=== PATIENT | female | born 1950 | race Caucasian/White ===

== ENCOUNTER 2016-07-07 07:33 | Day surgery (SDC) | payer MEDICARE, OTHER ==
[2016-07-07] VITALS (22 sets, daily range): BP systolic 106–161; BP diastolic 47–88; PULSE 56–74; RESP 12–31; Ht 157.5 cm; Wt 67.0 kg
[~2016-07-07] VITALS: Ht 157.5 cm; Wt 67.0 kg
[~2016-07-07 07:33] MED LIST: ACET500C5 PO; CLIN-73 PO; CLON-379 PO; HYDR25TA6 PO; LORA0.5T PO; LOSA100T7 PO; METO-429 PO; METO50TA16 PO; OMEG10006 PO; OMEP20CA16 PO; SYN1 PO
[2016-07-07] MEDS ORDERED: POLYMYXIN/BACITRACIN 1L IRRIG IRR ONE (09:00)
[2016-07-07] MEDS ORDERED: CLINDAMYCIN 600 MG/D5W (PMX) 50 ML IVPB ONE (09:00)
[2016-07-07] MEDS ORDERED: LIDOCAINE 1%/EPI 30 ML INJ INJ ONE (09:00)
[2016-07-07] MEDS ORDERED: SOD CHLORIDE 0.9% 1,000 ML IV SCH (09:00)
[2016-07-07] MEDS ORDERED: CLON1PAT3 (09:31)
[2016-07-07] MEDS ORDERED: HEPARIN 1000 UNITS/ML 10 ML INJ ONE (09:41)
[2016-07-07] MEDS ORDERED: CEFAZOLIN 1 GM/50 ML (PMX) 50 ML IVPB ONE (09:41)
[2016-07-07] MEDS ORDERED: MIDAZOLAM 1 MG/ML 2 ML INJ ONE ×2 (09:41→11:05)
[2016-07-07] MEDS ORDERED: LIDOCAINE 1%/EPI (MDV) 20 ML INJ ONE (09:41)
[2016-07-07] MEDS ORDERED: SOD CHLORIDE 0.9% 1,000 ML ONE (09:42)
[2016-07-07] MEDS ORDERED: FENTAnyl 50 MCG/ML VIAL ONE (09:42)
--- NOTE | 2016-07-07 12:33 | RADRPT ---
PROCEDURE: FLUOROSCOPIC AND ULTRASONOGRAPHIC-GUIDED PLACEMENT OF LEFT CHEST PORT. CLINICAL INDICATION: History of right breast cancer. Venous access for chemotherapy. TECHNIQUE: INTRAPROCEDURE MEDICATIONS: PB antibiotic solution 40 cc applied topically. 600 mg clindamycin intra venously, intra-op. IV Versed and Fentanyl per protocol. TECHNIQUE: Informed consent was obtained. The procedure, risks, benefits, complications and alternat grant were explained to the patient. Risks including bleeding, infection, and pneumothorax were expl ained. The patient understood and was willing to proceed. A procedural pause was performed. The patient's name, date of , and procedure to be performed w ere verified. The central line was inserted with all elements of maximal sterile barrier technique. All of the fol lowing were used: head covering, facial mask, sterile gown, sterile gloves, a large sterile sheet, h and hygiene, and 2% chlorhexidine for cutaneous antisepsis. The left neck and anterior/superior chest wall were prepped and draped in usual sterile fashion. Limited sonography of the left neck was then performed. Noted is a patent left internal jugular vein . Following the local injection of 1% lidocaine, the left internal jugular vein was punctured under so nographic guidance with a 20-gauge needle through which a 0.018 inch floppy tip guidewire was advanc ed into the superior vena cava with fluoroscopic guidance. The tract was dilated to 5 [place] and t he wire was then replaced with a 0.035 in Glidewire. Serial dilatation was then performed and a 7 F rench peel away sheath was introduced. A site just inferior to the clavicle in the superior anterior left chest wall was localized. One per cent lidocaine was used as local anesthesia. A transverse 3 cm incision was made utilizing a 15 blad e scalpel. Utilizing blunt dissection a subcutaneous pocket was created inferior to the incision. Th e cavity was flushed with approximately 40 cc of PB antibiotic solution. The catheter was tunneled underneath the skin from the newly created pocket to the puncture site in the neck. The central line catheter was pulled through the tract. The catheter was then advanced thr ough the sheath until the tip was positioned in the right atrium. The peel-away sheath was removed. The catheter was flushed and clamped. The catheter was then connected to the 6.6 [place] [employer] power port. The port was then placed into the pocket. Prior to closing the instrument and sponge count was verified and was correct. The subcutaneous tissue was closed with 3-0 Vicryl interrupted suture. The skin at the site of the pock et and in the neck was closed with 4-0 Vicryl suture in a running subcuticular technique. The port w as flushed with 2000 units of heparin in 2 cc utilizing a Espinoza needle. The needle was removed. A dr essing was applied. The patient tolerated procedure well. COMPARISON: None. FINDINGS: Ultrasound images were recorded and stored in the patient's medical record. Final radiographic images demonstrate the tip of the catheter in the upper right atrium. A total of 0.2 minutes of fluoroscopy time was used. The ultrasound images demonstrate the needle entering th e jugular vein. IMPRESSION: 1. Successful ultrasonographic and fluoroscopic guided placement of left chest port. RPTAT: QQ .Derek Kerr MD, MD Date Time Electronically viewed and signed by .Derek Kerr MD, on 07/07/2016 12:33 .R/
--- NOTE | 2016-07-07 12:34 | RADRPT ---
PROCEDURE: Ultrasound guidance for placement of needle in left internal jugular vein. CLINICAL INDICATION: Venous access. TECHNIQUE: Prior to the procedure, informed consent was obtained. Risks including bleeding, infection, and pneu mothorax were explained to the patient. The patient understood and was willing to proceed. A procedu ral pause was performed. The patient's name, date of , and procedure to be performed were verif ied. The central line was inserted with all elements of maximal sterile barrier technique. All of th e following were used: head covering, facial mask, sterile gown, sterile gloves, a large sterile she et, hand hygiene, and 2% chlorhexidine for cutaneous antisepsis. The left neck and anterior/superi or chest wall was prepped and draped in usual sterile fashion. Limited sonography of the left neck was then performed. Noted is a patent left internal jugular vein . Ultrasound images were recorded and stored in the patient's medical record. Following the local injection of Xylocaine, the left internal jugular vein was punctured under sonog raphic guidance with a 20-gauge needle through which a 0.018 inch floppy tip guidewire was advanced into the superior vena cava. The patient tolerated the procedure well. The remainder of the proced ure was performed and dictated under separate cover. COMPARISON: None. FINDINGS: The ultrasound images demonstrate a patent left internal jugular vein. The subsequent images demons trate the needle entering the left internal jugular vein. IMPRESSION: 1. Ultrasound guidance for a needle placement in left internal jugular vein. RPTAT: QQ .Derek Kerr MD, Date Time Electronically viewed and signed by .Derek Kerr MD, on 07/07/2016 12:34 .R/
== END 2016-07-07 14:15 | disposition home or self-care (01) ==
LOC: SDS 07:33
PROVIDERS: ATTEND Internal Medicine Hematology & Oncology
DX: C50.911 Malignant neoplasm of unspecified site of right female breast (principal)
CPT/HCPCS: 36561; 76942; C1769; C1788; J0690; J1644; J2250; J3010; J7040

== ENCOUNTER → 2016-07-12 | Outpatient (CLI) | payer MEDICARE, OTHER ==
[~2016-07-12] MED LIST changes: -ACET500C5 PO; -CLIN-73 PO; -CLON-379 PO; +CLON1PAT3; -HYDR25TA6 PO; -LORA0.5T PO; -METO50TA16 PO; -OMEG10006 PO; -OMEP20CA16 PO
--- NOTE | 2016-07-12 15:37 | RADRPT ---
Echocardiogram Report Patient Name: MARTIN LAUGHLIN Gender: Female Date: 1950 Study Date: 12-Jul-2016 Access Director: Avni Keller RDCS Location: EKG Ref. Physician: CASANDRA BENJAMIN Quality: Good Procedures: Transthoracic echocardiogram with complete 2D, M-Mode, and doppler examination. Indications: breast cancer. 2D/M Mode Doppler Measurement Value Normal Ranges Measurement Value Normal Ranges LVIDd 2D 3.9 3.5 - 5.6 cm AV Peak Devin 1.3 m/sec LVIDs 2D 2.3 2.1 - 4.1 cm AV Peak PG 6.7 mmHg LVPWd 2D 0.8 0.6 - 1.1 cm AI Peak PG 10.7 mmHg IVSd 2D 0.9 0.6 - 1.1 cm AI Peak Devin 1.6 m/sec AoR Diam 2D 2.3 2.0 - 3.7 cm AI PHT 777.3 msec EDV 2D 66.8 cm3 LVOT Peak Devin 1.0 m/sec ESV 2D 12.5 cm3 LVOT Peak PG 4.3 mmHg LA Dimen 2D 3.6 2.3 - 4.0 cm MV E Peak Devin 0.7 m/sec MV A Peak Devin 1.1 m/sec MV E/A 0.6 MV Decel Time 290 msec MV Decel Edwards 2 MV E/A 0.6 Findings Left Ventricle: Normal left ventricular systolic function. Normal left ventricular cavity size. Normal left ventricular wall thickness. Ejection fraction is visually estimated at 65 %. Tissue Doppler/Mitral Doppler indices are consistent with impaired relaxation (Stage I diastolic dysfunction). Right Ventricle: Normal right ventricular size. Normal right ventricular systolic function. Left Atrium: The left atrium is normal in size. Right Atrium: The right atrium is normal in size. Mitral Valve: Normal appearance of the mitral valve. Mild mitral annular calcification. Trace mitral regurgitation. Aortic Valve: No hemodynamically significant aortic stenosis by doppler. Aortic cusps appear mildly calcified. Mild aortic valve regurgitation. Tricuspid Valve: Normal appearance of the tricuspid valve. Unable to obtain RVSP due to minimal presence of tricuspid regurgitation. Pulmonic Valve: Normal pulmonic valve appearance. Pericardium: Normal pericardium with no significant pericardial effusion. Aorta: Normal aortic root. IVC: Normal size and normal respiratory collapse consistent with normal right atrial pressure. Conclusions 1.Normal left ventricular systolic function. Normal left ventricular cavity size. Normal left ventricular wall thickness. Ejection fraction is visually estimated at 65 %. Tissue Doppler/Mitral Doppler indices are consistent with impaired relaxation (Stage I diastolic dysfunction). 2.Normal appearance of the mitral valve. Mild mitral annular calcification. Trace mitral regurgitation. 3.No hemodynamically significant aortic stenosis by doppler. Aortic cusps appear mildly calcified. Mild aortic valve regurgitation. 4.Normal appearance of the tricuspid valve. Unable to obtain RVSP due to minimal presence of tricuspid regurgitation. Electronically Signed By: Cristo Olmedo 12-Jul-2016 15:36:50 -0800 Patient Name: MARTIN LAUGHLIN Study Date: 12-Jul-2016 [id number]
== END | disposition home or self-care (01) ==
LOC: EKG 11:11
PROVIDERS: ATTEND Internal Medicine Hematology & Oncology
DX: C50.919 Malignant neoplasm of unspecified site of unspecified female breast (principal)
CPT/HCPCS: 93306

== ENCOUNTER → 2016-09-02 | Outpatient (CLI) | payer OTHER ==
[~2016-09-02] MED LIST changes: +ACETAMINOPHEN 650 MG PO ONE; +METHYLPREDNISOLONE 40 MG INJ IV SCH; +SOD CHLORIDE 0.9% 250 ML IV* ONE; +[UNRECOGNIZED DRUG - REMARK] IV ONE
[2016-09-05 09:03] VITALS: BP 156/80; PULSE 76; RESP 18
== END | disposition home or self-care (01) ==
LOC: LAB 12:24 → SDS 09-05 07:45 → LAB 09-05 07:45
PROVIDERS: ATTEND Internal Medicine Hematology & Oncology
DX: D64.81 Anemia due to antineoplastic chemotherapy (principal)
CPT/HCPCS: 36430; 86850; 86900; 86901; 86920; P9016

== ENCOUNTER 2016-10-12 03:16 | Emergency (ER) | payer OTHER ==
[~2016-10-12] VITALS: Ht 157.5 cm; Wt 62.0 kg
[~2016-10-12 03:16] MED LIST changes: -ACETAMINOPHEN 650 MG PO ONE; -METHYLPREDNISOLONE 40 MG INJ IV SCH; -SOD CHLORIDE 0.9% 250 ML IV* ONE; -[UNRECOGNIZED DRUG - REMARK] IV ONE
[2016-10-12 03:29] VITALS: Ht 157.5 cm; Wt 62.0 kg
--- NOTE | 2016-10-12 03:33 | ERA ---
ER Documentation Chief Complaint Date/Time DATE: 10/12/16 TIME: 03:31 Chief Complaint epigastric pain since 2200. On chemo since 06/2016 for breast ca HPI The patient is a 66-year-old female, presenting to the ER because of epigastric abdominal pain that began about 2200 hrs. she thought it was gas, she began to Tums, milk of magnesia with minimal response therefore she came to emergency department. She denies similar symptoms previously, denies fever, chills, neck pain, chest pain, vomiting, dysuria, diarrhea. She is on chemotherapy since June 2016 for right breast cancer, once every 3 weeks. She does not smoke, drinks socially Past medical history: Hypertension, hypothyroidism, history of right breast CA Past surgical history: Right knee replacement, left chest Port-A-Cath ROS All systems reviewed and are negative except as per history of present illness. Medications Home Meds Active Scripts Ondansetron (Ondansetron Odt) 4 Mg Tab.rapdis, 4 MG PO Q6H Y for NAUSEA AND/OR VOMITING, #10 TAB Prov:WILLIAM TERRY MD 10/12/16 Hydrocodone/Acetaminophen ([place] 10-325 Tablet) 1 Each Tablet, 1 TAB PO Q6H Y for PAIN, #15 TAB Prov:WILLIAM TERRY MD 10/12/16 Reported Medications Ergocalciferol (Vitamin D2) (VITAMIN D2) 2,000 Unit Tablet, 2000 UNIT PO, TAB 10/12/16 Vitamin B Complex (Vitamin B Complex) 1 Each Capsule, 1 EACH PO, CAP 10/12/16 Losartan Potassium* (Losartan Potassium*) 25 Mg Tablet, 12.5 MG PO DAILY, TAB 10/12/16 Clonidine Patch (CLONIDINE PATCH) 0.3 Mg/24 Hr Patch, 1 PATCH QWEEKLY, #4 07/07/16 Metoprolol Tartrate* (Lopressor*) 50 Mg Tablet, 50 MG PO BID, TAB 09/30/13 Levothyroxine Sodium (Levothroid) 100 Mcg Tablet, 88 MCG PO DAILY 09/30/13 Discontinued Reported Medications Cholecalciferol* (Vitamin D*) 400 Unit Tablet, 400 UNIT PO DAILY, TAB 10/12/16 Losartan Potassium* (Losartan Potassium*) 100 Mg Tablet, 100 MG PO DAILY 09/30/13 Allergies Allergies: Coded Allergies: Penicillins (Verified Allergy, Unknown, 07/07/16) codeine (Verified Adverse Reaction, Mild, GI upset/vomiting, 10/12/16) PMhx/Soc History of Surgery: No (RT KNEE REPLACEMENT) Anesthesia Reaction: No Hx Neurological Disorder: No Hx Respiratory Disorders: No Hx Cardiac Disorders: Yes (HTN) Hx Psychiatric Problems: No Hx Miscellaneous Medical Probl: Yes (RT BREAST CA) Hx Alcohol Use: Yes (SOCIAL) Hx Substance Use: No Hx Tobacco Use: No Physical Exam Vitals Vital Signs Date Time Temp Pulse Resp B/P Pulse Ox O2 Delivery O2 Flow Rate FiO2 10/12/16 04:32 79 18 124/64 97 Room Air 10/12/16 03:29 97.2 79 20 134/67 97 Physical Exam Const: No acute distress. Head: Atraumatic. Eyes: Normal Conjunctiva. ENT: Normal External Ears, Nose and Mouth. Neck: Full range of motion. No meningismus. Resp: Clear to auscultation bilaterally. Cardio: Regular rate and rhythm, no murmurs. Abd: Soft, non distended, normal bowel sounds, minimal epigastric tenderness, no right lower quadrant, right upper quadrant, rigidity, rebound, CVA tenderness Skin: No petechiae or rashes. Back: No midline or flank tenderness. Ext: No cyanosis, or edema. Neur: Awake and alert. No focal deficit Psych: Normal Mood and Affect. Result Diagram: 10/12/16 0352 10/12/16 0352 Results 24 hrs Laboratory Tests Test 10/12/16 03:52 10/12/16 04:51 White Blood Count 7.710^3/ul Red Blood Count 2.7610^6/ul Hemoglobin 9.0g/dl Hematocrit 26.7% Mean Corpuscular Volume 96.7fl Mean Corpuscular Hemoglobin 32.6pg Mean Corpuscular Hemoglobin Concent 33.7g/dl Red Cell Distribution Width 21.3% Platelet Count 07096^3/UL Mean Platelet Volume 8.4fl Neutrophils % 79.1% Lymphocytes % 11.3% Monocytes % 6.4% Eosinophils % 1.7% Basophils % 0.3% Nucleated Red Blood Cells % 0.0/100WBC Neutrophils # 6.110^3/ul Lymphocytes # 0.910^3/ul Monocytes # 0.510^3/ul Eosinophils # 0.110^3/ul Basophils # 0.010^3/ul Nucleated Red Blood Cells # 0.010^3/ul Sodium Level 143mmol/L Potassium Level 3.7mmol/L Chloride Level 113mmol/L Carbon Dioxide Level 25mmol/L Anion Gap 9 Blood Urea Nitrogen 12mg/dl Creatinine 0.73mg/dl Glucose Level 177mg/dl Calcium Level 9.4mg/dl Total Bilirubin 0.5mg/dl Direct Bilirubin 0.00mg/dl Indirect Bilirubin 0.5mg/dl Aspartate Amino Transf (AST/SGOT) 81IU/L Alanine Aminotransferase (ALT/SGPT) 50IU/L Alkaline Phosphatase 66IU/L Total Protein 7.0g/dl Albumin 4.6g/dl Globulin 2.40g/dl Albumin/Globulin Ratio 1.91 Lipase 79U/L Bedside Urine pH (LAB) 7.0 Bedside Urine Protein (LAB) Negative Bedside Urine Glucose (UA) Negative Bedside Urine Ketones (LAB) Negative Bedside Urine Blood Negative Bedside Urine Nitrite (LAB) Negative Bedside Urine Leukocyte Esterase (L Negative Current Medications Medications (Trade) Dose Ordered Sig/Dong Route PRN Reason Start Time Stop Time Status Last Admin Dose Admin Morphine Sulfate (morphine) 4 mg ONCE STAT IV 10/12/16 03:38 10/12/16 03:39 DC 10/12/16 03:55 Ondansetron HCl 4 mg 4 mg ONCE STAT IV 10/12/16 03:38 10/12/16 03:39 DC 10/12/16 03:54 Sodium Chloride (NS) 1,000 ml @ 1,000 mls/hr Q1H ONCE IV 10/12/16 04:00 10/12/16 04:59 DC 10/12/16 03:54 Hydromorphone HCl (Dilaudid) 1 mg ONCE STAT IV 10/12/16 04:34 10/12/16 04:35 DC 10/12/16 04:48 Procedures/[place] [id number] Radiology Main Line: [phone] DIAGNOSTIC IMAGING REPORT Patient: MARTIN LAUGHLIN : 1950 Age: 66 Sex: F MR #: [id number] DOS: 10/12/16 0338 Ordering MD: WILLIAM TERRY MD Location: E/R Room/Bed: PROCEDURE: ULTRASOUND LIMITED ABDOMEN CLINICAL INDICATION: 66-year-old female with abdominal pain. TECHNIQUE: Multiple sonographic of the right upper quadrant of the abdomen were obtained. The images were reviewed on a PACS workstation. COMPARISON: None. FINDINGS: The pancreas is partially visualized and is otherwise without abnormal echogenicity. The liver displays normal echogenicity. The liver measures 16.6 cm in length. No evidence of intrahepatic biliary ductal dilatation is seen. The portal and hepatic veins are unremarkable. The gallbladder contains multiple small shadowing stones. The gallbladder wall is mildly prominent measuring 3.2 mm. No pericholecystic fluid is seen. The common bile duct measures 4.7 mm and is not dilated. The right kidney displays normal echogenicity. The right kidney measures 10.4 cm in maximal length. No caliectasis or hydronephrosis is seen. No free fluid is seen. IMPRESSION: Cholelithiasis with mildly prominent gallbladder wall. .Nghia Santana MD MD Date Time Electronically viewed and signed by .Nghia Santana MD, MD on 10/12/2016 04:48 .M/ CC: WILLIAM TERRY MD MEDICAL MAKING DECISION: The patient is a 66-year-old female, presenting with acute biliary colic. She was treated with 1 L normal saline for clinical dehydration, morphine 4 mg IV and Dilaudid 1 mg IV for pain and Zofran 4 mg IV 1 for nausea with good response The differential diagnoses considered include but are not limited to cholelithiasis, cholecystitis, cystitis, pancreatitis, hepatitis, gastritis, peptic ulcer disease, gastric ulcer, appendicitis, diverticulitis, cholangitis, choledocholithiasis, partial small bowel obstruction. Departure Diagnosis: Primary Impression: Biliary colic Additional Impression: Anemia Condition: Good Comments She was discharged with [place] and Zofran I discussed the findings with the patient. I advised the patient to follow-up with the primary physician in about 1-2 days for referral to general surgeon for elective cholecystectomy, sooner if needed and return if any concern. WILLIAM TERRY MD October 12, 2016 03:32
[2016-10-12] MEDS ORDERED: ONDANSETRON 4 MG INJ IV STA (03:38)
[2016-10-12] MEDS ORDERED: morphine 4 MG/ML VIAL IV STA (03:38)
[2016-10-12] MEDS ORDERED: SOD CHLORIDE 0.9% 1,000 ML IV ONE (04:00)
[2016-10-12 04:02] LABS: ADD SCAN DIFF NO
[2016-10-12 04:03] LABS: BASOPHILS % 0.3 % (0.0-2.0); EOSINOPHILS # 0.1 10^3/ul (0.0-0.5); EOSINOPHILS % 1.7 % (0.0-7.0); HEMATOCRIT 26.7 % (37.0-47.0); LYMPHOCYTES # 0.9 10^3/ul (0.8-2.9); LYMPHOCYTES % 11.3 % (15.0-51.0); MEAN CORPUSCULAR HEMOGLOBIN 32.6 pg (29.0-33.0); MEAN CORPUSCULAR HGB CONC 33.7 g/dl (32.0-37.0); MEAN CORPUSCULAR VOLUME 96.7 fl (82.0-101.0); MEAN PLATELET VOLUME 8.4 fl (7.4-10.4); MONOCYTE # 0.5 10^3/ul (0.3-0.9); MONOCYTES % 6.4 % (0.0-11.0); NEUTROPHIL # 6.1 10^3/ul (1.6-7.5); NEUTROPHILS % 79.1 % (39.0-77.0); PLATELET COUNT 268 10^3/UL (140-415); RED BLOOD COUNT 2.76 10^6/ul (4.20-5.40); RED CELL DISTRIBUTION WIDTH 21.3 % (11.5-14.5); WHITE BLOOD COUNT 7.7 10^3/ul (4.8-10.8)
[2016-10-12] MEDS ORDERED: HYDROmorphONE 1 MG/ML SYG IV STA (04:34)
[2016-10-12 04:36] LABS: ALBUMIN 4.6 g/dl (3.3-4.9); POTASSIUM 3.7 mmol/L (3.5-5.1)
[2016-10-12 04:38] LABS: BILIRUBIN,INDIRECT 0.5 mg/dl (0-1.1); BILIRUBIN,TOTAL 0.5 mg/dl (0.2-1.3); CREATININE 0.73 mg/dl (0.44-1.00)
[2016-10-12 04:39] LABS: ALBUMIN/GLOBULIN RATIO 1.91; CALCIUM 9.4 mg/dl (8.4-10.2)
--- NOTE | 2016-10-12 04:48 | RADRPT ---
PROCEDURE: ULTRASOUND LIMITED ABDOMEN CLINICAL INDICATION: 66-year-old female with abdominal pain. TECHNIQUE: Multiple sonographic of the right upper quadrant of the abdomen were obtained. The imag es were reviewed on a PACS workstation. COMPARISON: None. FINDINGS: The pancreas is partially visualized and is otherwise without abnormal echogenicity. The liver displays normal echogenicity. The liver measures 16.6 cm in length. No evidence of intrah epatic biliary ductal dilatation is seen. The portal and hepatic veins are unremarkable. The gallbladder contains multiple small shadowing stones. The gallbladder wall is mildly prominent measuring 3.2 mm. No pericholecystic fluid is seen. The common bile duct measures 4.7 mm and is not dilated. The right kidney displays normal echogenicity. The right kidney measures 10.4 cm in maximal length. No caliectasis or hydronephrosis is seen. No free fluid is seen. IMPRESSION: Cholelithiasis with mildly prominent gallbladder wall. .Nghia Santana MD, Date Time Electronically viewed and signed by .Nghia Santana MD, MD on 10/12/2016 04:48 .M/
[2016-10-12 04:49] LABS: URINE BLOOD (Dip) POC Negative (NEGATIVE)
[2016-10-12] MEDS ORDERED: VITA1CAP PO (05:19)
[2016-10-12] MEDS ORDERED: LOSA25TA5 PO (05:19)
[2016-10-12] MEDS ORDERED: ERGO2000 PO (05:19)
[2016-10-12] MEDS ORDERED: CHOL400T10 PO (05:19)
[2016-10-12] MEDS ORDERED: ONDA4TAB14 PO (05:22)
[2016-10-12] MEDS ORDERED: HYDR-902 PO (05:22)
[2016-10-12 05:52] VITALS: BP 136/78; PULSE 81; RESP 18
== END 2016-10-12 05:52 | disposition home or self-care (01) ==
LOC: E/R 03:16
DX: K80.50 Calculus of bile duct without cholangitis or cholecystitis without obstruction (principal); D64.9 Anemia, unspecified; I10 Essential (primary) hypertension; E03.9 Hypothyroidism, unspecified; Z85.3 Personal history of malignant neoplasm of breast; Z96.651 Presence of right artificial knee joint
CPT/HCPCS: 76705; 80053; 81003; 83690; 85025; J1170; J2270; J2405; J7030; 36415; 96374; 96375

== ENCOUNTER → 2016-10-20 | Outpatient (CLI) | payer OTHER ==
[~2016-10-20] MED LIST changes: +ERGO2000 PO; +HYDR-902 PO; -LOSA100T7 PO; +LOSA25TA5 PO; +ONDA4TAB14 PO; +VITA1CAP PO
--- NOTE | 2016-10-21 08:40 | RADRPT ---
Echocardiogram Report Patient Name: MARTIN LAUGHLIN Gender: Female Date: 1950 Study Date: 20-Oct-2016 Regional Wildlife Agent: Abner [facility] Location: EKG Ref. Physician: CASANDRA BENJAMIN Quality: Adequate Procedures: Transthoracic echocardiogram with complete 2D, M-Mode, and doppler examination. Indications: Evaluate Left Ventricular function. Breast Cancer. 2D/M Mode Doppler Measurement Value Normal Ranges Measurement Value Normal Ranges LVIDd 2D 4.2 3.5 - 5.6 cm AV Peak Devin 1.4 m/sec LVIDs 2D 2.8 2.1 - 4.1 cm AV Peak PG 7.5 mmHg LVPWd 2D 1.2 0.6 - 1.1 cm LVOT Peak Devin 1.3 m/sec IVSd 2D 1.2 0.6 - 1.1 cm LVOT Peak PG 6.3 mmHg AoR Diam 2D 2.9 2.0 - 3.7 cm MV E Peak Devin 0.7 m/sec EDV 2D 77.3 cm3 MV A Peak Devin 1.0 m/sec ESV 2D 21.7 cm3 MV E/A 0.7 LA Dimen 2D 3.7 2.3 - 4.0 cm MV Decel Time 211 msec MV Decel Whitley 3 MV E/A 0.7 Findings Left Ventricle: Normal left ventricular systolic function. Normal left ventricular cavity size. Mild concentric left ventricular hypertrophy. Ejection fraction is visually estimated at 65 %. Tissue Doppler/Mitral Doppler indices are consistent with impaired relaxation (Stage I diastolic dysfunction). E/E`=11. normal e/e` atio c/w normal LA pressure. Right Ventricle: Normal right ventricular size. Normal right ventricular systolic function. Left Atrium: The left atrium is normal in size. Right Atrium: The right atrium is normal in size. Mitral Valve: Mild mitral leaflet calcification. Trace mitral regurgitation. Aortic Valve: Normal appearance of the aortic valve. No significant aortic stenosis or insufficiency. Trileaflet aortic valve. Trace to mild aortic valve regurgitation. Tricuspid Valve: Normal appearance and function of the tricuspid valve with trace physiologic regurgitation. Estimated peak PA systolic pressure 2530 mmHg. c/w normal pulmonary pressures. Pulmonic Valve: There is trace to mild pulmonic regurgitation. Pericardium: Normal pericardium with no significant pericardial effusion. Aorta: Normal aortic root. IVC: Normal size and normal respiratory collapse consistent with normal right atrial pressure. c/w normal RA pressure. Conclusions 1.Normal left ventricular systolic function. Normal left ventricular cavity size. Mild concentric left ventricular hypertrophy. Ejection fraction is visually estimated at 65 %. Tissue Doppler/Mitral Doppler indices are consistent with impaired relaxation (Stage I diastolic dysfunction). E/E`=11. normal e/e` atio c/w normal LA pressure. 2.The left atrium is normal in size. 3.Mild mitral leaflet calcification. Trace mitral regurgitation. 4.Normal appearance of the aortic valve. No significant aortic stenosis or insufficiency. Trileaflet aortic valve. Trace to mild aortic valve regurgitation. 5.Normal appearance and function of the tricuspid valve with trace physiologic regurgitation. Estimated peak PA systolic pressure 25-30 mmHg. c/w normal pulmonary pressures. 6.There is trace to mild pulmonic regurgitation. 7.Normal pericardium with no significant pericardial effusion. 8.Normal size and normal respiratory collapse consistent with normal right atrial pressure. c/w normal RA pressure. 9.No Vegetation, masses, or thrombi seen. Electronically Signed By: Reginald Yoo 21-Oct-2016 08:39:41 -0700 Patient Name: MARTIN LAUGHLIN Study Date: 20-Oct-2016 [id number]
== END | disposition home or self-care (01) ==
LOC: EKG 10:05
PROVIDERS: ATTEND Internal Medicine Hematology & Oncology
DX: C50.919 Malignant neoplasm of unspecified site of unspecified female breast (principal)
CPT/HCPCS: 93306

== ENCOUNTER 2017-01-09 07:11 | Observation (INO) | payer OTHER ==
[2017-01-06 10:27] VITALS: BMI 24.2
[~2017-01-09] VITALS: Ht 157.5 cm; Wt 59.9 kg
[2017-01-09] VITALS (16 sets, daily range): BP systolic 124–186; BP diastolic 71–91; PULSE 56–107; RESP 12–18; Ht 157.5 cm; Wt 59.9 kg
[2017-01-09] MEDS ORDERED: VANCOMYCIN 1 GM in NS 250 ML IVPB ONE (08:30)
[2017-01-09] MEDS ORDERED: NIFE30TA60 PO (08:44)
[2017-01-09] MEDS ORDERED: METHYLENE BLUE 1% 10 ML INJ ONE (09:47)
[2017-01-09] MEDS ORDERED: ISOSULFAN BLUE 1% 5 ML INJ SC ONE ×2 (10:04→15:00)
[2017-01-09] MEDS ORDERED: DIPHENHYDRAMINE 50 MG INJ ONE (14:27)
[2017-01-09] MEDS ORDERED: LABETALOL HCL 20MG INJ IV PRN (14:30)
[2017-01-09] MEDS ORDERED: DIPHENHYDRAMINE 50 MG INJ IV ONE (14:30)
[2017-01-09] MEDS ORDERED: ONDANSETRON 4 MG INJ IV PRN ×2 (14:30→17:00)
[2017-01-09] MEDS ORDERED: MEPERIDINE 25 MG INJ IV PRN (14:30)
[2017-01-09] MEDS ORDERED: hydrALAzine 20 MG INJ IV PRN ×2 (14:30→18:30)
[2017-01-09] MEDS ORDERED: DIPHENHYDRAMINE 50 MG INJ IV PRN (14:30)
[2017-01-09] MEDS ORDERED: HYDROmorphONE (0.2 MG/ML) 10ML SYG IV PRN ×3 (14:30)
[2017-01-09] MEDS ORDERED: MIDAZOLAM 1 MG/ML 2 ML INJ IV PRN (14:30)
[2017-01-09] MEDS ORDERED: FENTAnyl 50 MCG/ML VIAL IV PRN ×3 (14:30)
[2017-01-09] MEDS ORDERED: EPHEDrine SULFATE 50 MG/5 ML SYG IV PRN (14:30)
[2017-01-09] MEDS ORDERED: OXYCODONE/ACETAMINOPHEN (5/325) TAB PO PRN ×2 (14:30)
[2017-01-09] MEDS ORDERED: METOCLOPRAMIDE 10 MG INJ IV PRN (14:30)
[2017-01-09] MEDS ORDERED: MIDAZOLAM 1 MG/ML 2 ML INJ ONE (14:35)
[2017-01-09] MEDS ORDERED: LIDOCAINE 2% (SDV) 5 ML INJ ONE (14:44)
[2017-01-09] MEDS ORDERED: PROPOFOL 20 ML ONE (14:44)
[2017-01-09] MEDS ORDERED: MEPERIDINE 100 MG INJ ONE (14:44)
[2017-01-09] MEDS ORDERED: ATROPINE 1 MG/10 ML SYRINGE ONE (15:10)
[2017-01-09] MEDS ORDERED: METOCLOPRAMIDE 10 MG INJ ONE (16:13)
[2017-01-09] MEDS ORDERED: ONDANSETRON 4 MG INJ ONE (16:13)
[2017-01-09] MEDS ORDERED: EPHEDrine SULFATE 50 MG/5 ML SYG ONE (16:13)
[2017-01-09] MEDS ORDERED: D5W-0.45 NACL + KCL 20 MEQ 1,000 ML IV SCH (16:34)
--- NOTE | 2017-01-09 16:34 | SIPON ---
Date/Time of Note Date/Time of Note DATE: 01/09/17 TIME: 16:32 Operative Report Preoperative Diagnosis Base of cancer right breast Postoperative Diagnosis Same Operation/Procedure Performed Needle directed right partial mastectomy and dissection was explained the technique Surgeon: BEN SNIDER MD investment sales assistant: TATYANA SIEGEL MD Anesthesia Type: general Estimated Blood Loss: 10 - 50 ml's Transfusion Required: no Specimens Right partial mastectomy specimen and and sentinel lymph node with additional axillary nodes Grafts/Implants: none Complications: no BEN SNIDER MD Jan 09, 2017 16:34
[2017-01-09] MEDS ORDERED: morphine 2 MG INJ IV PRN (17:00)
[2017-01-09] MEDS ORDERED: ACETAMINOPHEN 1000MG/100ML IV 100 ML IVPB PRN (17:00)
[2017-01-09] MEDS ORDERED: CLONIDINE 0.3 MG/24 HR PATCH TRANSDERM SCH ×2 (19:00)
[2017-01-09] MEDS: SOD CHLORIDE 0.9% 1,000 ML IV SCH ×2 (20:00→21:50)
[2017-01-09] MEDS: METOPROLOL 50 MG TAB PO SCH (20:22)
[2017-01-09] MEDS ORDERED: NIFEdipine (XL) 30 MG TAB PO SCH (21:00)
[2017-01-10] MEDS ORDERED: ACETAMINOPHEN 325 MG TAB PO PRN
--- NOTE | 2017-01-10 02:11 | OPR ---
DATE OF OPERATION: 01/09/2017 SURGEON: Rk Carl MD CUSTOMER RELATIONS REPRESENTATIVE: Roberto Navas MD ANESTHESIOLOGIST: Kin Veras MD PREOPERATIVE DIAGNOSIS: Invasive cancer, right breast. POSTOPERATIVE DIAGNOSIS: Invasive cancer, right breast. OPERATIVE PROCEDURE: Needle-directed right partial mastectomy with axillary dissection utilizing sentinel lymph node technique. ANESTHESIA: General. INDICATIONS FOR PROCEDURE: The patient is a 66-year-old female who underwent screening mammography, found to have an approximately 2-1/2 cm invasive cancer of the right breast. It was HER2 positive, thus the patient was counseled as to the benefits of neoadjuvant chemotherapy. She proceed with neoadjuvant chemotherapy, she subsequently was referred for surgery. A post chemotherapy mammogram revealed relatively good response. The patient was counseled as to the possibility of breast conservation surgery. She elected to proceed in that fashion. She consented and was scheduled for surgery. DESCRIPTION OF PROCEDURE: On the morning of surgery, the patient presented to [facility] where she underwent localization of the lesion, performed by attending radiologist, Dr. Claudio Barnhart. Subsequently, she was brought to the operating theater and placed under general anesthesia. If I did not already dictated. After being placed under general anesthesia, the right breast and axillary region was prepped and draped in the usual sterile fashion. Approximately 4 mL of 1 percent Lymphazurin blue dye was then injected peritumorally and the right breast was gently massaged for approximately 12 minutes. At this point, an incision was made in the right axillary hairline for a length of approximately 3-4 cm. Subcutaneous tissue was dissected with cautery down through the clavipectoral fascia. A dye-stained lymphatic was identified and traced to the sentinel node. [place] nodes were slightly enlarged. It was this node and additional level 1 nodes in the area were then meticulously resected with the LigaSure device. The sentinel node was marked. The attending pathologist, Dr. Pam Gamble, came into the room to perform intraoperative analysis of the sentinel node. It was negative for definite evidence of metastatic disease; therefore, no further nodes were taken. The wound was then irrigated. A number 10-Maltese Manish- Pickard drain was then brought through the right mid axillary line. It was cut to size and laid within the axilla. It was secured in place with a 2-0 nylon suture in the standard fashion. The skin incision was then reapproximated with 4-0 Vicryl in subcuticular fashion and Dermabond was applied. Attention was then directed towards performing the partial mastectomy. The localization had taken place with the 2-wire bracketing technique. A radial incision was then made in the region of the previously placed localization wire. Subcutaneous tissue was dissected with cautery. The skin edges were then elevated with skin hooks and wide circumferential dissection of the tissue associated with the wire took place, taking great care to ensure adequate margin. Specimen was transected, oriented, and sent for radiographic confirmation of capture. Capture was confirmed. The specimen was then sent for permanent pathologic analysis. The wound was irrigated. Minimal bleeding was controlled with cautery. The skin was then reapproximated with 4- 0 Vicryl suture in subcuticular fashion and Dermabond was applied. The patient tolerated procedure well. The estimated blood loss was 30 mL. There were no complications. The patient was transported in stable condition to the recovery room where a circumferential compression dressing was applied. Dictated By: Rk Carl MD /betty/mita /Document#: [id number]
--- NOTE | 2017-01-10 02:59 | HP ---
DATE OF ADMISSION: 01/09/2017 HISTORY OF PRESENT ILLNESS: The patient is a 66-year-old female with history of hypertension and hypothyroidism. The patient also with cancer of the right breast. Patient was evaluated by Dr. Carl in general surgery consultation. Patient was brought to the hospital and underwent right partial mastectomy with sentinel lymph node dissection. Postoperatively, patient noted to have elevated blood pressure and was giving hydralazine 5 mg IV in the recovery room with some improvement in blood pressure. Patient also complains of moderate pain and patient will be admitted for further evaluation and management to medical surgical floor. PAST MEDICAL HISTORY: Positive for cancer of the right breast, hypertension and hypothyroidism. PAST SURGICAL HISTORY: Patient is status post a right total knee replacement, PermCath placement. FAMILY HISTORY: Noncontributory. SOCIAL HISTORY: Patient lives at home with her family. Patient denies tobacco use. Denies alcohol use. Denies illicit drug use. ALLERGIES: PATIENT IS ALLERGIC TO: PENICILLIN ANTIBIOTICS. CODEINE. MEDICATIONS: Includes: 1. Clonidine patch. 2. Levothyroxine. 3. Cozaar. 4. Metoprolol. 5. Nifedipine. REVIEW OF SYSTEMS: Twelve point review of system is negative unless what is mentioned in HPI. PHYSICAL EXAMINATION: GENERAL: Patient is a well-developed female, currently is awake, alert. VITAL SIGNS: Temperature is 98.5, pulse is 107, blood pressure 167/77, respiratory rate 18, oxygen saturation 100 percent on room air. HEENT: Head is atraumatic, normocephalic. Pupils equal, round, reactive to light and accommodation. Oral mucosa is pink and moist. NECK: Supple. No cervical lymphadenopathy. No thyromegaly. CHEST: Status post surgery with a dry, clean, intact dressing and 2 axillary Manish-Pickard. LUNGS: Clear bilaterally. CARDIOVASCULAR: Normal S1, S2. No murmurs, gallops, clicks, rubs noted. ABDOMEN: Round, soft, nondistended, nontender. Bowel sounds present. EXTREMITIES: No edema, clubbing, cyanosis. Pulses equal bilaterally 2+. SKIN: No rash. No petechiae noted. NEUROLOGICAL: Patient is awake, alert, and oriented x4. No focal deficits noted. ASSESSMENT AND PLAN: 1. Invasive cancer of the right breast, status post partial mastectomy, with sentinel lymph node dissection. We will continue Tylenol and morphine p.r.n. for pain, Zofran p.r.n. for nausea. 2. Hypertension. We will continue patient's antihypertensive medication from home. 3. Hypothyroidism. Continue Synthroid. 4. Continue sequential compression device for deep venous thrombosis prophylaxis. Further recommendations based on clinical course. Plan of care discussed with Dr. Martinez. Dictated By: Wanda Adkins NP /betty/jose luis /Document#: [id number]
[2017-01-10 03:24] VITALS: BP 130/60; RESP 18
[2017-01-10 05:00] VITALS: BP 135/63; PULSE 64; RESP 18
[2017-01-10] MEDS ORDERED: LEVOTHYROXINE 88 MCG TAB PO SCH (06:00)
[2017-01-10 06:20] LABS: BASOPHILS % 0.4 % (0.0-2.0); EOSINOPHILS # 0.2 10^3/ul (0.0-0.5); EOSINOPHILS % 2.9 % (0.0-7.0); HEMATOCRIT 32.3 % (37.0-47.0); HEMOGLOBIN 11.1 g/dl (12.0-16.0); LYMPHOCYTES # 1.6 10^3/ul (0.8-2.9); LYMPHOCYTES % 19.7 % (15.0-51.0); MEAN CORPUSCULAR HEMOGLOBIN 32.7 pg (29.0-33.0); MEAN CORPUSCULAR HGB CONC 34.4 g/dl (32.0-37.0); MEAN CORPUSCULAR VOLUME 95.3 fl (82.0-101.0); MONOCYTE # 0.8 10^3/ul (0.3-0.9); MONOCYTES % 10.4 % (0.0-11.0); NEUTROPHILS % 66.1 % (39.0-77.0); PLATELET COUNT 178 10^3/UL (140-415); RED BLOOD COUNT 3.39 10^6/ul (4.20-5.40); RED CELL DISTRIBUTION WIDTH 13.1 % (11.5-14.5); WHITE BLOOD COUNT 7.9 10^3/ul (4.8-10.8)
[2017-01-10 06:59] LABS: CALCIUM 9.2 mg/dl (8.4-10.2); CREATININE 0.87 mg/dl (0.44-1.00); POTASSIUM 4.2 mmol/L (3.5-5.1)
[2017-01-10 07:34] VITALS: BP 148/64; RESP 19
[2017-01-10] MEDS: METOPROLOL 50 MG TAB PO SCH (08:45)
[2017-01-10 08:51] VITALS: BP 172/76; PULSE 65
[2017-01-10] MEDS ORDERED: NIFEdipine (XL) 30 MG TAB PO SCH (09:00)
[2017-01-10] MEDS ORDERED: CLONIDINE 0.3 MG/24 HR PATCH TRANSDERM SCH (09:00)
[2017-01-10] MEDS ORDERED: LOSARTAN 25 MG TAB PO SCH (09:00)
--- NOTE | 2017-01-10 13:20 | PN ---
Date/Time of Note Date/Time of Note DATE: 01/10/17 TIME: 13:15 Assessment/Plan VTE Prophylaxis VTE Prophylaxis Intervention: ambulation Lines/Catheters IV Catheter Type (from [facility]): Saline Lock Assessment/Plan Assessment/Plan Postop day #1. Status post right breast partial mastectomy with axillary dissection. There is a stable Manish-Pickard drains draining serosanguineous fluid both of them totally 70 cc since operation. She was instructed how to take care of Manish-Pickard drain how to drain them and how to record the drainage amount. Patient can be discharged home today to call Dr. Dickson office and make an appointment for follow-up. Subjective 24 Hr Interval Summary Free Text/Dictation No complain. Postop day #1 status post right partial mastectomy with axillary dissection sentinel lymph node technique. As tolerated diet has been out of bed walking around. Exam/Review of Systems Vital Signs Vitals Vital Signs Date Time Temp Pulse Resp B/P Pulse Ox O2 Delivery O2 Flow Rate FiO2 01/10/17 08:51 65 172/76 01/10/17 07:34 98.3 19 97 01/10/17 05:00 Room Air Intake and Output 01/09/17 01/09/17 01/10/17 15:00 23:00 07:00 Intake Total 1480 ml Output Total 53 ml 40 ml Balance -53 ml 1440 ml Exam Postop day #1. Vital signs stable afebrile. Manish-Pickard sump drain respectively 20 cc and 50 cc since operation to serosanguineous fluid. Dressing is intact patient can move right upper extremity completely. Results Result Diagram: 01/10/17 0543 01/10/17 0543 Results 24 hrs Laboratory Tests Test 01/09/17 14:40 01/10/17 05:43 Hepatitis B Surface Antigen NEGATIVE Hepatitis B Surface Antibody NEGATIVE Hepatitis C Antibody NEGATIVE HIV (1&2) Antibody NEGATIVE White Blood Count 7.9 Red Blood Count 3.39 #L Hemoglobin 11.1 #L Hematocrit 32.3 #L Mean Corpuscular Volume 95.3 Mean Corpuscular Hemoglobin 32.7 Mean Corpuscular Hemoglobin Concent 34.4 Red Cell Distribution Width 13.1 # Platelet Count 178 # Mean Platelet Volume 9.0 Neutrophils % 66.1 Lymphocytes % 19.7 Monocytes % 10.4 Eosinophils % 2.9 Basophils % 0.4 Nucleated Red Blood Cells % 0.0 Neutrophils # (Manual) 5.2 Lymphocytes # 1.6 Monocytes # 0.8 Eosinophils # 0.2 Basophils # 0.0 Nucleated Red Blood Cells # 0.0 Sodium Level 143 Potassium Level 4.2 Chloride Level 104 Carbon Dioxide Level 25 Anion Gap 18 H Blood Urea Nitrogen 14 Creatinine 0.87 Glucose Level 102 Calcium Level 9.2 Medications Medications Current Medications Levothyroxine Sodium (Synthroid) 88 mcg DAILY@06 PO Last administered on 06:11; Admin Dose 88 MCG; Start 01/10/17 at 06:00 Losartan Potassium (Cozaar) 12.5 mg DAILY PO Last administered on 01/10/17 08: 45; Admin Dose 12.5 MG; Start 01/10/17 at 09:00 Metoprolol Tartrate (Lopressor) 50 mg BID PO Last administered on 01/10/17 08: 45; Admin Dose 50 MG; Start 01/09/17 at 21:00 Hydralazine HCl (Apresoline) 10 mg Q6H PRN IV SBP>170; Start 01/09/17 at 18:30 Nifedipine (Procardia Xl) 30 mg QHS PO Last administered on 01/09/17 20:21; Admin Dose 30 MG; Start 01/09/17 at 21:00 Clonidine HCl (Catapres-Tts 3 Patch) 1 patch Q7D TRANSDERM Last administered on 01/10/17 08:46; Admin Dose 1 PATCH; Start 01/10/17 at 09:00 Acetaminophen (Tylenol Tab) 650 mg Q6H PRN PO PAIN; Start 01/10/17 at 00:00 TATYANA SIEGEL MD Jan 10, 2017 13:20
[2017-01-10 13:32] VITALS: BP 146/69; RESP 18
[2017-01-10] MEDS ORDERED: TRAM50TA2 PO (13:47)
[2017-01-10] MEDS ORDERED: traMADol 50 MG TAB PO PRN (14:00)
--- NOTE | 2017-01-10 18:54 | DS ---
Date/Time of Note Date/Time of Note DATE: 01/10/17 TIME: 18:53 Discharge Summary Admission/Discharge Info Admit Date/Time Jan 09, 2017 at 16:36 Discharge Date/Time Jan 10, 2017 at 16:45 Patient Condition: Stable Hx of Present Illness The patient is a 66-year-old female with history of hypertension and hypothyroidism. The patient also with cancer of the right breast. Patient was evaluated by Dr. Carl in general surgery consultation. Patient was brought to the hospital and underwent right partial mastectomy with sentinel lymph node dissection. Postoperatively, patient noted to have elevated blood pressure and was giving hydralazine 5 mg IV in the recovery room with some improvement in blood pressure. Patient also complains of moderate pain and patient will be admitted for further evaluation and management to medical surgical floor. Hospital Course 1. Invasive cancer of the right breast, s/p chemo, status post partial mastectomy with sentinel lymph node dissection. We will continue Tylenol and morphine p.r.n. for pain, Zofran p.r.n. for nausea. 2. Hypertension. We will continue patient's antihypertensive medication from home. 3. Hypothyroidism. Continue Synthroid. Home Meds Active Scripts Tramadol HCl (Tramadol HCl) 50 Mg Tablet, 50 MG PO Q6H Y for PAIN, #30 TAB Prov:BERTRAND MCGHEE 01/10/17 Reported Medications Nifedipine* (Nifedipine ER*) 30 Mg Tablet.sa, 30 MG PO DAILY, TAB.SA 01/09/17 Losartan Potassium* (Losartan Potassium*) 25 Mg Tablet, 12.5 MG PO DAILY, TAB 10/12/16 Clonidine Patch (CLONIDINE PATCH) 0.3 Mg/24 Hr Patch, 1 PATCH QWEEKLY, #4 07/07/16 Metoprolol Tartrate* (Lopressor*) 50 Mg Tablet, 50 MG PO BID, TAB 09/30/13 Levothyroxine Sodium (Levothroid) 100 Mcg Tablet, 88 MCG PO DAILY 09/30/13 Discontinued Reported Medications Ergocalciferol (Vitamin D2) (VITAMIN D2) 2,000 Unit Tablet, 2000 UNIT PO, TAB 10/12/16 Vitamin B Complex (Vitamin B Complex) 1 Each Capsule, 1 EACH PO, CAP 10/12/16 Discontinued Scripts Ondansetron (Ondansetron Odt) 4 Mg Tab.rapdis, 4 MG PO Q6H Y for NAUSEA AND/OR VOMITING, #10 TAB Prov:WILLIAM TERRY MD 10/12/16 Hydrocodone/Acetaminophen ([place] 10-325 Tablet) 1 Each Tablet, 1 TAB PO Q6H Y for PAIN, #15 TAB Prov:WILLIAM TERRY MD 10/12/16 Follow-up Plan Follow up with Dr. Carl in 1 week Primary Care Provider Michael Bridges Pending Labs Laboratory Tests Test 01/10/17 05:43 White Blood Count 7.910^3/ul (4.8-10.8) Red Blood Count 3.3910^6/ul (4.20-5.40) Hemoglobin 11.1g/dl (12.0-16.0) Hematocrit 32.3% (37.0-47.0) Mean Corpuscular Volume 95.3fl (82.0-101.0) Mean Corpuscular Hemoglobin 32.7pg (29.0-33.0) Mean Corpuscular Hemoglobin Concent 34.4g/dl (32.0-37.0) Red Cell Distribution Width 13.1% (11.5-14.5) Platelet Count 42293^3/UL (140-415) Mean Platelet Volume 9.0fl (7.4-10.4) Neutrophils % 66.1% (39.0-77.0) Lymphocytes % 19.7% (15.0-51.0) Monocytes % 10.4% (0.0-11.0) Eosinophils % 2.9% (0.0-7.0) Basophils % 0.4% (0.0-2.0) Nucleated Red Blood Cells % 0.0/100WBC (0.0-0.0) Neutrophils # (Manual) 5.210^3/ul (1.7-7.5) Lymphocytes # 1.610^3/ul (0.8-2.9) Monocytes # 0.810^3/ul (0.3-0.9) Eosinophils # 0.210^3/ul (0.0-0.5) Basophils # 0.010^3/ul (0.0-0.1) Nucleated Red Blood Cells # 0.010^3/ul (0.0-0.0) Sodium Level 143mmol/L (135-144) Potassium Level 4.2mmol/L (3.5-5.1) Chloride Level 104mmol/L (97-110) Carbon Dioxide Level 25mmol/L (21-31) Anion Gap 18 (8-16) Blood Urea Nitrogen 14mg/dl (7-20) Creatinine 0.87mg/dl (0.44-1.00) Glucose Level 102mg/dl (70-220) Calcium Level 9.2mg/dl (8.4-10.2) BERTRAND MCGHEE Jan 10, 2017 18:54
== END 2017-01-10 16:45 | disposition home or self-care (01) ==
LOC: SDS 07:11 → MS2 16:36 → SDS 16:36
PROVIDERS: ADMIT Surgery Surgical Oncology; ATTEND Surgery Surgical Oncology
DX: D24.1 Benign neoplasm of right breast (principal); N60.31 Fibrosclerosis of right breast; N60.91 Unspecified benign mammary dysplasia of right breast; I12.9 Hypertensive chronic kidney disease with stage 1 through stage 4 chronic kidney disease, or unspecified chronic kidney disease; N18.2 Chronic kidney disease, stage 2 (mild); E03.9 Hypothyroidism, unspecified; Z85.3 Personal history of malignant neoplasm of breast; Z96.651 Presence of right artificial knee joint; Z88.5 Allergy status to narcotic agent; Z88.0 Allergy status to penicillin
CPT/HCPCS: 19301; 38525; 38900; 80048; 85025; 86703; 86706; 86803; 87340; 88307; G0378; J0360; J0461; J1200; J2175; J2250; J2405; J2765; J3370; J3480; J7030; Q9968

== ENCOUNTER 2017-01-21 20:12 | Emergency (ER) | payer OTHER ==
[~2017-01-21] VITALS: Ht 152.4 cm; Wt 60.5 kg
[~2017-01-21 20:12] MED LIST changes: -ERGO2000 PO; -HYDR-902 PO; +NIFE30TA60 PO; -ONDA4TAB14 PO; +TRAM50TA2 PO; -VITA1CAP PO
[2017-01-21 20:20] VITALS: Ht 152.4 cm; Wt 60.5 kg
[2017-01-21] MEDS ORDERED: ONDANSETRON 4 MG INJ IV STA (20:45)
[2017-01-21] MEDS ORDERED: HYDROmorphONE 1 MG/ML SYG IV STA (20:45)
[2017-01-21] MEDS ORDERED: SOD CHLORIDE 0.9% 1,000 ML IV STA (20:45)
[2017-01-21 21:01] LABS: BASOPHILS % 0.5 % (0.0-2.0); EOSINOPHILS # 0.3 10^3/ul (0.0-0.5); EOSINOPHILS % 4.3 % (0.0-7.0); HEMATOCRIT 33.6 % (37.0-47.0); HEMOGLOBIN 11.6 g/dl (12.0-16.0); LYMPHOCYTES % 30.2 % (15.0-51.0); MEAN CORPUSCULAR HEMOGLOBIN 31.5 pg (29.0-33.0); MEAN CORPUSCULAR HGB CONC 34.5 g/dl (32.0-37.0); MEAN CORPUSCULAR VOLUME 91.3 fl (82.0-101.0); MEAN PLATELET VOLUME 8.9 fl (7.4-10.4); MONOCYTE # 0.4 10^3/ul (0.3-0.9); MONOCYTES % 6.1 % (0.0-11.0); NEUTROPHILS % 58.3 % (39.0-77.0); PLATELET COUNT 177 10^3/UL (140-415); RED BLOOD COUNT 3.68 10^6/ul (4.20-5.40); RED CELL DISTRIBUTION WIDTH 12.3 % (11.5-14.5); WHITE BLOOD COUNT 6.6 10^3/ul (4.8-10.8)
[2017-01-21 21:20] LABS: ALBUMIN 4.6 g/dl (3.3-4.9); ALBUMIN/GLOBULIN RATIO 1.39; BILIRUBIN,INDIRECT 0.2 mg/dl (0-1.1); BILIRUBIN,TOTAL 0.2 mg/dl (0.2-1.3); CALCIUM 9.8 mg/dl (8.4-10.2); CREATININE 0.85 mg/dl (0.44-1.00); POTASSIUM 3.2 mmol/L (3.5-5.1); TOTAL PROTEIN 7.9 g/dl (6.1-8.1)
--- NOTE | 2017-01-21 21:43 | ERA ---
ER Documentation Chief Complaint Date/Time DATE: 01/21/17 TIME: 21:40 Chief Complaint epigastric pain x2 hours HPI This is a very pleasant 66-year-old female who is had a history of right breast cancer with completion of chemotherapy who is cancer free but also history of cholelithiasis who presents with epigastric abdominal pain that started 2 hours prior to arrival. It is 12 out of 10, constant and nonradiating. The patient does have a history of high blood pressure but cannot take blood pressure medication because of the pain. She denies any mid back pain, no migratory pain. No nausea vomiting or constipation. No chest pain or shortness of breath. ROS All systems reviewed and are negative except as per history of present illness. Medications Home Meds Active Scripts Ibuprofen* (Motrin*) 800 Mg Tab, 800 MG PO Q6H Y for PAIN AND OR ELEVATED TEMP, #30 TAB Prov:MADONNA CHURCHILL MD 01/21/17 Ondansetron (Ondansetron Odt) 4 Mg Tab.rapdis, 4 MG PO Q6H Y for NAUSEA AND/OR VOMITING, #20 TAB Prov:MADONNA CHURCHILL MD 01/21/17 Hydrocodone/Acetaminophen ([place] 5-325 Tablet) 1 Each Tablet, 1 TAB PO Q6H Y for PAIN, #7 TAB Prov:MADONNA CHURCHILL MD 01/21/17 Tramadol HCl (Tramadol HCl) 50 Mg Tablet, 50 MG PO Q6H Y for PAIN, #30 TAB Prov:BERTRAND MCGHEE 01/10/17 Reported Medications Nifedipine* (Nifedipine ER*) 30 Mg Tablet.sa, 30 MG PO DAILY, TAB.SA 01/09/17 Losartan Potassium* (Losartan Potassium*) 25 Mg Tablet, 12.5 MG PO DAILY, TAB 10/12/16 Clonidine Patch (CLONIDINE PATCH) 0.3 Mg/24 Hr Patch, 1 PATCH QWEEKLY, #4 07/07/16 Metoprolol Tartrate* (Lopressor*) 50 Mg Tablet, 50 MG PO BID, TAB 09/30/13 Levothyroxine Sodium (Levothroid) 100 Mcg Tablet, 88 MCG PO DAILY 09/30/13 Allergies Allergies: Coded Allergies: Penicillins (Verified Allergy, Unknown, 01/09/17) vancomycin (Verified Allergy, Unknown, 01/09/17) codeine (Verified Adverse Reaction, Mild, GI upset/vomiting, 01/09/17) PMhx/Soc History of Surgery: Yes (RIGHT KNEE, RT PARTIAL MASTECTOMY, LEFT CHEST PORTACATH) Anesthesia Reaction: No Hx Neurological Disorder: No Hx Respiratory Disorders: No Hx Cardiac Disorders: Yes (HTN) Hx Psychiatric Problems: No Hx Miscellaneous Medical Probl: Yes (BREAST CA, CHOLELITHISIS) Hx Alcohol Use: No Hx Substance Use: No Hx Tobacco Use: No Smoking Status: Never smoker FmHx Family History: No diabetes Physical Exam Vitals Vital Signs Date Time Temp Pulse Resp B/P Pulse Ox O2 Delivery O2 Flow Rate FiO2 01/21/17 20:30 97.5 80 24 183/90 100 Room Air 01/21/17 20:20 97.5 82 20 212/94 100 Physical Exam General: Uncomfortable Head: Normocephalic, atraumatic Eyes: Pupils equally reactive, EOM intact ENT: Moist mucous membranes Neck: Supple, no lymphadenopathy Respiratory: Lungs clear bilaterally, no distress Cardiovascular: RRR, no murmurs, rubs, or gallops Abdominal: Soft, reproducible epigastric tenderness to palpation, negative Rodriguez sign, no pulsatile mass, no tenderness to McBurney's point : Deferred MSK: No edema, no unilateral swelling, 5/5 strength Neurologic: Alert and oriented, moving all extremities, normal speech, no focal weakness, no cerebellar signs Skin: No rash Psych: Normal mood Result Diagram: 01/21/17204901/21/172049 Results 24 hrs Laboratory Tests Test 01/21/17 20:50 White Blood Count 6.610^3/ul Red Blood Count 3.6810^6/ul Hemoglobin 11.6g/dl Hematocrit 33.6% Mean Corpuscular Volume 91.3fl Mean Corpuscular Hemoglobin 31.5pg Mean Corpuscular Hemoglobin Concent 34.5g/dl Red Cell Distribution Width 12.3% Platelet Count 91917^3/UL Mean Platelet Volume 8.9fl Neutrophils % 58.3% Lymphocytes % 30.2% Monocytes % 6.1% Eosinophils % 4.3% Basophils % 0.5% Nucleated Red Blood Cells % 0.0/100WBC Neutrophils # (Manual) 3.810^3/ul Lymphocytes # 2.010^3/ul Monocytes # 0.410^3/ul Eosinophils # 0.310^3/ul Basophils # 0.010^3/ul Nucleated Red Blood Cells # 0.010^3/ul Sodium Level 142mmol/L Potassium Level 3.2mmol/L Chloride Level 104mmol/L Carbon Dioxide Level 26mmol/L Anion Gap 15 Blood Urea Nitrogen 20mg/dl Creatinine 0.85mg/dl Glucose Level 113mg/dl Calcium Level 9.8mg/dl Total Bilirubin 0.2mg/dl Direct Bilirubin 0.00mg/dl Indirect Bilirubin 0.2mg/dl Aspartate Amino Transf (AST/SGOT) 34IU/L Alanine Aminotransferase (ALT/SGPT) 36IU/L Alkaline Phosphatase 57IU/L Total Protein 7.9g/dl Albumin 4.6g/dl Globulin 3.30g/dl Albumin/Globulin Ratio 1.39 Lipase 96U/L Current Medications Medications (Trade) Dose Ordered Sig/Dong Route PRN Reason Start Time Stop Time Status Last Admin Dose Admin Sodium Chloride (NS) 1,000 ml @ 1,000 mls/hr Q1H STAT IV 01/21/17 20:45 01/21/17 21:44 DC 01/21/17 20:59 Hydromorphone HCl (Dilaudid) 0.5 mg ONCE STAT IV 01/21/17 20:45 01/21/17 20:47 DC 01/21/17 20:57 Ondansetron HCl (Zofran Inj) 4 mg ONCE STAT IV 01/21/17 20:45 01/21/17 20:47 DC 01/21/17 20:57 Procedures/MDM EKG, MONITORS, & DIAGNOSTIC IMAGING: EKG: I reviewed and interpreted a 12-lead EKG. Rhythm: Normal sinus rhythm Ectopy: None Intervals: No abnormalities ST segments: No elevations or depressions T waves: No contiguous inversions Gallbladder ultrasound: Cholelithiasis without evidence of acute cholecystitis per radiology CT abdomen and pelvis: Pending LAB INTERPRETATION: No leukocytosis and no evidence of hepatobiliary obstruction MEDICAL DECISION MAKING: The patient presents with epigastric abdominal pain for approximately 2 hours. Given her history of cholelithiasis this raises the concern for biliary colic, choledocholithiasis, lower clinical concern for acute cholecystitis. Low concern for cardiac etiology. Given her breast cancer history, consider possible bowel obstruction versus metastatic disease process though the patient states that she is disease-free. CT imaging and ultrasound imaging indicated. The patient does have elevated blood pressure but has a known diagnosis of hypertension. Her pain is more consistent with biliary process rather than acute aortic process. I do not believe a CTA of the abdomen and pelvis is necessary. This is likely secondary to pain response. ER COURSE: The patient's pain is improved. Her laboratory testing shows no evidence of obstructive process. The patient CT is pending will be endorsed to the oncoming provider but if negative the patient can be safely discharged home with a diagnosis of biliary colic and follow-up with general surgeon. She should return for intractable pain or fever. I kept the patient and/or family informed of laboratory and diagnostic imaging results throughout the emergency room course. DISPOSITION PLAN: We discussed follow up with the patient's primary care doctor within 24 to 48 hours as needed. We also discussed return to the emergency room for worsening symptoms or worsening condition. Outpatient referral: General surgeon Discharge Medications: [place], Zofran, Motrin Departure Diagnosis: Primary Impression: Biliary colic Additional Impression: Epigastric abdominal pain Condition: Stable MADONNA CHURCHILL MD Jan 21, 2017 21:43
--- NOTE | 2017-01-21 22:40 | RADRPT ---
PROCEDURE: US Abdomen (right upper quadrant). CLINICAL INDICATION: Right upper quadrant pain TECHNIQUE: Multiple real-time longitudinal and transverse images of the right upper quadrant of th e abdomen were acquired utilizing a curved array transducer. Images were reviewed on a high-resoluti on PACS workstation. COMPARISON: None FINDINGS: The liver is normal in size and echogenicity without focal mass or intrahepatic biliary dilatation. There is normal hepatopedal flow within the main portal vein. The gallbladder contains several mob ile gallstones. There is no pericholecystic fluid or gallbladder wall thickening. No intra or extra hepatic biliary dilatation is seen. The common bile duct measures 4.8 mm in maximal dimension. The visualized portions of the pancreas are unremarkable with obscuration of the tail of the pancreas. No free fluid is identified. The right kidney measures 10.7 cm in length. There is normal echogenicity within the right kidney. There is no perinephric fluid collection. No hydronephrosis, mass, or calculus is seen. IMPRESSION: 1. Cholelithiasis without gallbladder wall thickening or biliary ductal dilatation. 2. Otherwise, unremarkable exam. RPTAT: [facility] Physician Savanah Date Time Electronically viewed and signed by Physician Savanah on 01/21/2017 22:40 JOSSELYN/
[2017-01-21] MEDS ORDERED: IBUP800T25 PO (23:01)
[2017-01-21] MEDS ORDERED: HYDR-906 PO (23:01)
[2017-01-21] MEDS ORDERED: ONDA4TAB14 PO (23:01)
--- NOTE | 2017-01-22 00:08 | RADRPT ---
PROCEDURE: CT Abdomen and Pelvis without contrast. CLINICAL INDICATION: Abdominal pelvic pain. TECHNIQUE: CT scan of the abdomen and pelvis without contrast was performed on a multidetector hig h-resolution CT scanner. The patient was scanned without intravenous contrast. Coronal and sagittal reformatted images were obtained from the axial source images. Images were reviewed on a high-resol [employer] PACS workstation. The total exam CTDI equals 10.4 mGy and the total exam DLP equals 544 mGy-cm . One or more of the following dose reduction techniques were used: - Automated exposure control. - Adjustment of the mA and/or kV according to patient size. - Use of iterative reconstruction technique. COMPARISON: None. FINDINGS: CT abdomen: The lung bases are clear. The heart size is normal, without pericardial thickening or effusion. Th e liver is normal in size and density without focal mass or intrahepatic biliary dilatation. The sp que is normal in size and homogeneous in density. The stomach is partially collapsed, but is gross ly unremarkable. The pancreas as visualized is normal. The gallbladder and biliary tree are unrema rkable and there is no evidence for biliary dilatation. The adrenal glands are symmetric and normal . The kidneys are symmetrically unremarkable as well. No renal calculus or obstructive uropathy or mass lesion is seen. The aorta is of normal caliber. Aortic vascular calcifications are present. There is no retroperit arana lymphadenopathy. The yahaira hepatis region is clear. The bowel and mesentery, as visualized, are equally unremarkable. CT pelvis: The small bowel loops situated within the pelvis are unremarkable. The pelvic organs are remarkable for heterogenous and myomatous uterus. The pelvic sidewalls and inguinal regions are clear. The s igmoid colon and rectum are unremarkable. No mass or adenopathy is seen. No free fluid is present. No acute inflammation is identified at this time. The surrounding osseous structures are remarkable for degenerative spondylosis of the spine. No ost eolytic or osteoblastic lesion is detected. IMPRESSION: 1. No acute findings in the abdomen and pelvis. 2. No mass, lymphadenopathy, or focal acute inflammatory process is identified. 3. Heterogeneous and myomatous uterus 4. Aortic atherosclerosis RPTAT: HRC Romel Garcia, Physician Date Time Electronically viewed and signed by Romel Garcia, Physician on 01/22/2017 00:08 RC/
[2017-01-22] MEDS ORDERED: OXYCODONE/ACETAMINOPHEN (5/325) TAB PO ONE (00:30)
[2017-01-22 00:52] VITALS: BP 164/90; PULSE 71; RESP 12; TEMP 98
== END 2017-01-22 00:56 | disposition home or self-care (01) ==
LOC: E/R 20:12
DX: K80.50 Calculus of bile duct without cholangitis or cholecystitis without obstruction (principal); I10 Essential (primary) hypertension; Z85.3 Personal history of malignant neoplasm of breast
CPT/HCPCS: 36415; 74176; 76705; 80053; 83690; 85025; 93005; 96374; 96375; 99285; J1170; J2405; J7030

== ENCOUNTER 2017-03-27 09:41 | Observation (INO) | payer OTHER ==
[~2017-03-27] VITALS: Ht 157.5 cm; Wt 60.5 kg
[2017-03-27] VITALS (29 sets, daily range): BP systolic 139–184; BP diastolic 65–105; PULSE 51–109; RESP 14–33; Ht 157.5 cm; Wt 60.5 kg
[~2017-03-27 09:41] MED LIST changes: +HYDR-906 PO; +IBUP800T25 PO; +LIDOCAINE 2% (SDV) 5 ML INJ ONE; +ONDA4TAB14 PO
[2017-03-27] MEDS ORDERED: ERGO2000 PO (10:14)
[2017-03-27] MEDS ORDERED: VITA1CAP PO (10:15)
[2017-03-27 10:33] LABS: BASOPHILS % 0.5 % (0.0-2.0); EOSINOPHILS # 0.2 10^3/ul (0.0-0.5); EOSINOPHILS % 3.2 % (0.0-7.0); HEMATOCRIT 36.5 % (37.0-47.0); HEMOGLOBIN 12.6 g/dl (12.0-16.0); LYMPHOCYTES # 1.4 10^3/ul (0.8-2.9); LYMPHOCYTES % 17.9 % (15.0-51.0); MEAN CORPUSCULAR HEMOGLOBIN 30.7 pg (29.0-33.0); MEAN CORPUSCULAR HGB CONC 34.5 g/dl (32.0-37.0); MEAN CORPUSCULAR VOLUME 88.8 fl (82.0-101.0); MEAN PLATELET VOLUME 8.8 fl (7.4-10.4); MONOCYTE # 0.6 10^3/ul (0.3-0.9); MONOCYTES % 7.9 % (0.0-11.0); NEUTROPHIL # 5.3 10^3/ul (1.6-7.5); NEUTROPHILS % 69.8 % (39.0-77.0); PLATELET COUNT 176 10^3/UL (140-415); RED BLOOD COUNT 4.11 10^6/ul (4.20-5.40); RED CELL DISTRIBUTION WIDTH 12.5 % (11.5-14.5); WHITE BLOOD COUNT 7.6 10^3/ul (4.8-10.8)
[2017-03-27 10:49] LABS: INR 1.1; PROTIME 14.2 Sec (12.2-14.2); PT RATIO 1.1
[2017-03-27 10:53] LABS: PARTIAL THROMBOPLASTIN TIME 35.1 Sec (25.0-35.0)
[2017-03-27 10:57] LABS: CALCIUM 9.5 mg/dl (8.4-10.2); CREATININE 0.96 mg/dl (0.44-1.00); POTASSIUM 3.9 mmol/L (3.5-5.1)
[2017-03-27] MEDS ORDERED: MIDAZOLAM 1 MG/ML 2 ML INJ ONE (10:57)
[2017-03-27] MEDS ORDERED: ROPIVACAINE 0.5 % 30 ML VIAL ONE (10:57)
[2017-03-27] MEDS ORDERED: PROPOFOL 20 ML ONE (10:57)
[2017-03-27] MEDS ORDERED: ONDANSETRON 4 MG INJ ONE (10:57)
[2017-03-27] MEDS ORDERED: METOCLOPRAMIDE 10 MG INJ ONE (10:57)
[2017-03-27] MEDS ORDERED: ROCURONIUM 50 MG INJ ONE (10:57)
[2017-03-27] MEDS ORDERED: CEFAZOLIN 1 GM INJ ONE (10:58)
[2017-03-27] MEDS ORDERED: SOD CHLORIDE 0.9% 1,000 ML IV SCH (11:00)
--- NOTE | 2017-03-27 11:00 | RADRPT ---
PROCEDURE: XR Chest. CLINICAL INDICATION: Preoperative study TECHNIQUE: Single AP view of the chest were obtained COMPARISON: 09/30/2013 FINDINGS: The heart and mediastinum are within normal limits. The pulmonary vasculature are unremarkable. The aorta demonstrates atherosclerotic calcifications. There is no lung consolidation, pleural effusio n or pneumothorax. Degenerative changes are seen within the thoracic spine. There is no acute osse ous abnormality. Left chest port has been placed and the tip overlies the SVC. IMPRESSION: No acute disease. RPTAT: AA .Shaun Petty MD, MD Date Time Electronically viewed and signed by .Shaun Petty MD, on 03/27/2017 11:00 .Annemarie/
[2017-03-27] MEDS ORDERED: EPHEDrine SULFATE 50 MG/5 ML SYG ONE (11:26)
[2017-03-27] MEDS ORDERED: hydrALAzine 20 MG INJ ONE (11:38)
[2017-03-27] MEDS ORDERED: HYDROmorphONE (0.2 MG/ML) 10ML SYG IV PRN ×2 (12:00)
[2017-03-27] MEDS ORDERED: hydrALAzine 20 MG INJ IV PRN ×2 (12:00→13:30)
[2017-03-27] MEDS ORDERED: LABETALOL HCL 20MG INJ IV PRN (12:00)
[2017-03-27] MEDS ORDERED: ONDANSETRON 4 MG INJ IV PRN ×2 (12:00→12:30)
[2017-03-27] MEDS ORDERED: DIPHENHYDRAMINE 50 MG INJ IV PRN (12:00)
[2017-03-27] MEDS ORDERED: OXYCODONE/ACETAMINOPHEN (5/325) TAB PO PRN ×2 (12:00)
[2017-03-27] MEDS ORDERED: MEPERIDINE 25 MG INJ IV PRN (12:00)
[2017-03-27] MEDS ORDERED: SUGAMMADEX SODIUM 200 MG/2 ML VIAL IV ONE (12:13)
--- NOTE | 2017-03-27 12:28 | SIPON ---
Date/Time of Note Date/Time of Note DATE: 03/27/17 TIME: 12:26 Operative Report Preoperative Diagnosis Symptomatic cholelithiasis Postoperative Diagnosis Symptomatic cholelithiasis with chronic cholecystitis Operation/Procedure Performed Laparoscopic cholecystectomy Surgeon see signature line assistant drafter Dr Navas Anesthesia: general Estimated blood loss: 10 - 50 ml's Transfusion Required none Specimen Gallbladder Grafts/Implants none Complications none BEN SNIDER MD Mar 27, 2017 12:28
[2017-03-27] MEDS: HYDROmorphONE (0.2 MG/ML) 10ML SYG IV PRN ×2 (12:29→13:01)
[2017-03-27] MEDS ORDERED: HYDROCODONE/APAP (5/325) TAB PO PRN (12:30)
[2017-03-27] MEDS ORDERED: ACETAMINOPHEN 1000MG/100ML IV 100 ML IVPB PRN (12:30)
[2017-03-27] MEDS ORDERED: LORAZEPAM 0.5 MG TAB PO PRN (14:00)
[2017-03-27] MEDS ORDERED: CLONIDINE 0.3 MG/24 HR PATCH TRANSDERM SCH (15:00)
[2017-03-27] MEDS: D5W-0.45 NACL + KCL 20 MEQ 1,000 ML IV SCH (15:04)
--- NOTE | 2017-03-27 15:19 | OPR ---
DATE OF OPERATION: 03/27/2017 PREOPERATIVE DIAGNOSIS: Symptomatic cholelithiasis. POSTOPERATIVE DIAGNOSIS: Symptomatic cholelithiasis and chronic cholecystitis. ANESTHESIA: General. ANESTHESIOLOGIST: Dr. Emilia MD SURGEON: Rk Snider MD EMT DRIVER: Dr. Roberto Siegel. INDICATIONS FOR PROCEDURE: The patient is known to me. I previously treated her for a right breast cancer. She recently, however, was experiencing significant right upper quadrant pain. Workup inc luding ultrasound revealed cholelithiasis. She was counseled as to risks versus benefits of cholecy stectomy. She consented and was scheduled for surgery. DESCRIPTION OF PROCEDURE: The patient was brought to the operating theater, placed under general an esthesia. The abdomen was prepped and draped in usual sterile fashion. A 2-cm incision was made in the midline just above the umbilicus. Subcutaneous tissue was dissected with cautery down to the a nterior rectus sheath, 0 Vicryl stay sutures were then placed on either side of the linea alba. The linea alba was incised and the abdomen was entered without difficulty. The Tyler trocar was then placed in the standard fashion. The abdomen was insufflated to a pressure of 14 mmHg with carbon di oxide. The laparoscope was introduced. Attention was directed to the right upper quadrant where a distended gallbladder with significant omental adhesions was identified. Three accessory ports were then placed under direct vision in the standard fashion. Through the lateral port sites the gallbl adder was grasped at the fundus and neck and with a combination of cautery and blunt dissection, the adhesions were taken down. The peritoneum overlying the gallbladder was then incised both medially and laterally to facilitate mobilization of the triangle of [place]. With meticulous dissection, the cystic artery was isolated, triply clipped and then transected. Subsequently, the cystic duct was fully identified. Two clips were placed across distally and it was then transected with the endovas cular BARBARA stapler at its junction with the neck of the gallbladder. Gallbladder was then dissected out of the gallbladder fossa using cautery. Prior to final transection, irrigation and inspection t ook place. Minimal bleeding was controlled with cautery. The gallbladder was transected. Laparosc ope was moved to the 12-mm subcostal port site, and the gallbladder was retrieved from the abdomen t hrough the umbilical port site using the gallbladder retrieval bag. Tyler trocar was then placed b ack into the abdomen. The abdomen was reinsufflated. Laparoscope was moved back to the umbilical p ort. Final irrigation and inspection took place. There was no evidence of bleeding. The 3 accesso ry ports were then removed under direct vision. Again, there was no evidence of bleeding. Finally, the umbilical port was removed. Midline umbilical fascia was reapproximated with 0 Prolene sutures in [id number] fashion. All wounds were irrigated with Betadine and skin incisions were reappr oximated with skin srikanth. Patient tolerated procedure well. The total blood loss was approximate ly 20 mL. There were no complications and the patient was transported in stable condition to the re covery room. Dictated By: RK SNIDER MD TL/NTS Conf#: [id number] DID#: [id number] CC: ROBERTO SIEGEL MD; RK SNIDER MD;*EndCC*
[2017-03-27] MEDS: morphine 2 MG INJ IV PRN ×2 (16:35→20:47)
--- NOTE | 2017-03-27 17:13 | HP ---
DATE OF ADMISSION: 03/27/2017 HISTORY OF PRESENT ILLNESS: The patient is a 66-year-old female with past medical history positive for hypertension, hyperlipidemia, hypothyroidism, anxiety, arthritis, right breast cancer status pos t partial mastectomy, status post chemotherapy. The patient developed multiple episodes of symptoma tic gallstones and was evaluated by Dr. Carl in surgical consultation. The patient was brought to the hospital and underwent laparoscopic cholecystectomy today. Postoperatively, the patient experie nced significant pain. Also, the patient had elevated blood pressure requiring hydralazine, and pat ient will be admitted for further evaluation and management. PAST MEDICAL HISTORY: Per HPI. PAST SURGICAL HISTORY: Status post right breast partial mastectomy, status post right total knee re placement in 2016. FAMILY HISTORY: Noncontributory. SOCIAL HISTORY: The patient lives at home with her family. The patient denies any tobacco use. De nies any alcohol use. Denies any illicit drug use. ALLERGIES: THE PATIENT IS ALLERGIC TO: 1. PENICILLIN ANTIBIOTICS. 2. VANCOMYCIN. 3. CODEINE. HOME MEDICATIONS: Include: 1. Clonidine patch. 2. Levothyroxine. 3. Cozaar. 4. Metoprolol. 5. Nifedipine. 6. Vitamin D2. 7. Vitamin B complex. REVIEW OF SYSTEMS: A 12-point review of systems is negative unless what is mentioned in the HPI. PHYSICAL ASSESSMENT: GENERAL: Well-developed, well-nourished female. Currently is awake, alert. VITAL SIGNS: Temperature is 98.5, pulse is 72, blood pressure is 150/68, respiratory rate 18, oxyge n saturation 97% on 2 liters nasal cannula. HEENT: Head is atraumatic, normocephalic. Pupils equal, round, reactive to light and accommodation . Oral mucosa is pink and moist. NECK: Supple, no cervical lymphadenopathy, no thyromegaly. CHEST: Lungs clear bilaterally. There is no rhonchi, wheezes, rales noted. The patient has a left chest Port-A-Cath. CARDIOVASCULAR: Normal S1, S2. There are no murmurs, gallops, clicks, rubs noted. ABDOMEN: Round, soft. Status post laparoscopic cholecystectomy with intact surgical incisions. EXTREMITIES: No edema, clubbing, cyanosis. Pulses equal bilaterally 2+. SKIN: There is no rash, petechiae noted. NEUROLOGIC: The patient is awake, alert and oriented x3. No focal deficits noted. LABORATORY DATA: On admission, CBC: White blood cells 7.6, hemoglobin 12.6, hematocrit 36.5, plate lets 176. Chemistry: Sodium is 146, potassium 3.9, chloride 107, carbon dioxide 25, anion gap 18, BUN is 16, creatinine is 0.96, glucose 106, calcium 9.5. ASSESSMENT AND PLAN: 1. Symptomatic cholelithiasis with chronic cholecystitis, status post laparoscopic cholecystectomy. We are going to continue morphine and [place] p.r.n. for pain, Zofran p.r.n. for nausea. Continue p ostoperative antibiotics. 2. Hypertension. Will continue hydralazine p.r.n. for systolic blood pressure above 170. Resume t he patient's home antihypertensive medication. 3. Hyperlipidemia. 4. Hypothyroidism. Will continue Synthroid. 5. Anxiety. Continue Ativan p.r.n. 6. Right breast cancer, status post partial mastectomy, status post chemotherapy. Completed in Dec. 7. Will continue sequential compression devices for deep venous thrombosis prophylaxis. Further recommendations will be based on clinical course. Plan of care discussed with Dr. Roth. Dictated By: BERTRAND MCGHEE BRIM WELT SEWING MACHINE OPERATOR for LAUREN ROTH MD SR/NTS Conf#: [id number] DID#: [id number] CC: BEN CARL MD;*EndCC*
[2017-03-27] MEDS: METOPROLOL 50 MG TAB PO SCH (20:48)
[2017-03-27] MEDS ORDERED: CEFTRIAXONE 1 GM/50 ML (PMX) 50 ML IVPB SCH (21:00)
[2017-03-27] MEDS ORDERED: NIFEdipine (XL) 30 MG TAB PO SCH (21:00)
[2017-03-27 21:48] LABS: ADD UMIC NO; UR ASCORBIC ACID NEGATIVE (NEGATIVE); UR BILIRUBIN (Dip) NEGATIVE (NEGATIVE); UR BLOOD (Dip) NEGATIVE (NEGATIVE); UR CLARITY CLEAR (CLEAR); UR COLOR COLORLESS (YELLOW); UR GLUCOSE (Dip) NEGATIVE (NEGATIVE); UR KETONES (Dip) NEGATIVE (NEGATIVE); UR LEUKOCYTE ESTERASE (Dip) NEGATIVE Leu/ul (NEGATIVE); UR NITRITE (Dip) NEGATIVE (NEGATIVE); UR SPECIFIC GRAVITY (Dip) 1.002 (1.003-1.030); UR TOTAL PROTEIN (Dip) NEGATIVE (NEGATIVE); UR UROBILINOGEN (Dip) NEGATIVE (NEGATIVE)
[2017-03-27] MEDS: PHENAZOPYRIDINE 200 MG TAB PO SCH (22:00)
[2017-03-28] MEDS: morphine 2 MG INJ IV PRN ×3 (01:31→09:42)
[2017-03-28] MEDS: D5W-0.45 NACL + KCL 20 MEQ 1,000 ML IV SCH ×3 (01:32→12:22)
[2017-03-28 02:13] VITALS: BP 159/74; RESP 20
[2017-03-28 05:18] VITALS: BP 155/69; PULSE 66; RESP 18
[2017-03-28] MEDS ORDERED: LEVOTHYROXINE 100 MCG TAB PO SCH (06:00)
[2017-03-28] MEDS ORDERED: LEVOTHYROXINE 88 MCG TAB PO SCH (06:00)
[2017-03-28] MEDS: PHENAZOPYRIDINE 200 MG TAB PO SCH ×2 (08:25→12:33)
[2017-03-28] MEDS: METOPROLOL 50 MG TAB PO SCH (08:25)
[2017-03-28 08:30] VITALS: BP 137/65; RESP 20
[2017-03-28] MEDS ORDERED: LOSARTAN 25 MG TAB PO SCH (09:00)
[2017-03-28 11:50] LABS: BASOPHILS % 0.4 % (0.0-2.0); EOSINOPHILS # 0.3 10^3/ul (0.0-0.5); EOSINOPHILS % 3.3 % (0.0-7.0); HEMOGLOBIN 12.1 g/dl (12.0-16.0); LYMPHOCYTES # 1.4 10^3/ul (0.8-2.9); MEAN CORPUSCULAR HEMOGLOBIN 30.3 pg (29.0-33.0); MEAN CORPUSCULAR HGB CONC 33.6 g/dl (32.0-37.0); MEAN CORPUSCULAR VOLUME 90.2 fl (82.0-101.0); MEAN PLATELET VOLUME 9.5 fl (7.4-10.4); MONOCYTE # 1.1 10^3/ul (0.3-0.9); MONOCYTES % 10.5 % (0.0-11.0); NEUTROPHIL # 7.5 10^3/ul (1.6-7.5); NEUTROPHILS % 72.3 % (39.0-77.0); PLATELET COUNT 168 10^3/UL (140-415); RED BLOOD COUNT 3.99 10^6/ul (4.20-5.40); RED CELL DISTRIBUTION WIDTH 13.2 % (11.5-14.5); WHITE BLOOD COUNT 10.4 10^3/ul (4.8-10.8)
[2017-03-28 12:13] LABS: CALCIUM 9.4 mg/dl (8.4-10.2); CREATININE 0.85 mg/dl (0.44-1.00); POTASSIUM 4.6 mmol/L (3.5-5.1)
[2017-03-28] MEDS ORDERED: CLONIDINE 0.3 MG/24 HR PATCH TRANSDERM SCH (15:00)
--- NOTE | 2017-03-28 15:30 | PN ---
DATE: 03/28/2017 Postop day #1 status post laparoscopic cholecystectomy. SUBJECTIVE: Feels okay, tolerating diet. No nausea, no vomiting. Has passed gas and has been out of bed and walk around. OBJECTIVE: GENERAL: Alert, awake, oriented. VITAL SIGNS: Temperature 98.1, last episode and before was 99.5. Heart rate 97 and 66, respirations 20, blood pressure 137/65, saturation 97% on room air. HEART: Regular. LUNGS: Clear. ABDOMEN: Soft. Dressing is intact. ASSESSMENT AND PLAN: A 66-year-old female who had lap cholecystectomy yesterday. She is doing fine today. Tolerating diet. No complaint. She is ready to go home. Instruction was given the patient will was told to call Dr. Snider' office for followup. Dictated By: TATYANA SIEGEL MD PS/NTS Conf#: [id number] DID#: [id number] CC: BEN SNIDER MD;*EndCC* MTDD
[2017-03-28 15:55] VITALS: BP 144/75; PULSE 83; RESP 16
[2017-03-28] MEDS ORDERED: HYDR-3498 PO (16:31)
--- NOTE | 2017-03-28 19:43 | DS ---
Date/Time of Note Date/Time of Note DATE: 03/28/17 TIME: 19:42 Discharge Summary Admission/Discharge Info Admit Date/Time Mar 27, 2017 at 12:23 Discharge Date/Time Mar 28, 2017 at 17:45 Patient Condition: Stable Hx of Present Illness The patient is a 66-year-old female with past medical history positive for hypertension, hyperlipidemia, hypothyroidism, anxiety, arthritis, right breast cancer status post partial mastectomy, status post chemotherapy. The patient developed multiple episodes of symptomatic gallstones and was evaluated by Dr. Carl in surgical consultation. The patient was brought to the hospital and underwent laparoscopic cholecystectomy today. Postoperatively, the patient experienced significant pain. Also, the patient had elevated blood pressure requiring hydralazine, and patient will be admitted for further evaluation and management. Hospital Course 1. Symptomatic cholelithiasis with chronic cholecystitis, status post laparoscopic cholecystectomy. We are going to continue morphine and [place] p.r.n. for pain, Zofran p.r.n. for nausea. Continue postoperative antibiotics. 2. Hypertension. Will continue hydralazine p.r.n. for systolic blood pressure above 170. Resume the patient's home antihypertensive medication. 3. Hyperlipidemia. 4. Hypothyroidism. Will continue Synthroid. 5. Anxiety. Continue Ativan p.r.n. 6. Right breast cancer, status post partial mastectomy, status post chemotherapy. Completed in December of 2016. Home Meds Active Scripts Hydrocodone Bit-Acetaminophen (Hydrocodone Bit-APAP) 5-325MG Tablet, 1 TAB PO Q4 Y for PAIN, #30 TAB Prov:BERTRAND MCGHEE 03/28/17 Reported Medications Vitamin B Complex (Vitamin B Complex) 1 Each Capsule, 1 EACH PO DAILY, CAP 03/27/17 Ergocalciferol (Vitamin D2) (VITAMIN D2) 2,000 Unit Tablet, 2000 UNIT PO DAILY, TAB 03/27/17 Nifedipine* (Nifedipine ER*) 30 Mg Tablet.sa, 30 MG PO DAILY, TAB.SA 01/09/17 Losartan Potassium* (Losartan Potassium*) 25 Mg Tablet, 12.5 MG PO DAILY, TAB 10/12/16 Clonidine Patch (CLONIDINE PATCH) 0.3 Mg/24 Hr Patch, 1 PATCH QWEEKLY, #4 07/07/16 Metoprolol Tartrate* (Lopressor*) 50 Mg Tablet, 50 MG PO BID, TAB 09/30/13 Levothyroxine Sodium (Levothroid) 100 Mcg Tablet, 88 MCG PO DAILY 09/30/13 Discontinued Scripts Ibuprofen* (Motrin*) 800 Mg Tab, 800 MG PO Q6H Y for PAIN AND OR ELEVATED TEMP, #30 TAB Prov:MADONNA CHURCHILL MD 01/21/17 Ondansetron (Ondansetron Odt) 4 Mg Tab.rapdis, 4 MG PO Q6H Y for NAUSEA AND/OR VOMITING, #20 TAB Prov:MADONNA CHURCHILL MD 01/21/17 Hydrocodone/Acetaminophen ([place] 5-325 Tablet) 1 Each Tablet, 1 TAB PO Q6H Y for PAIN, #7 TAB Prov:MADONNA CHURCHILL MD 01/21/17 Tramadol HCl (Tramadol HCl) 50 Mg Tablet, 50 MG PO Q6H Y for PAIN, #30 TAB Prov:BERTRAND MCGHEE 01/10/17 Follow-up Plan f/up with Dr Carl in 1-2 weeks. Primary Care Provider Michael Bridges Pending Labs Laboratory Tests Test 03/27/17 19:50 03/28/17 11:23 Urine Color COLORLESS (YELLOW) Urine Clarity CLEAR (CLEAR) Urine pH 6.0 (5.0-9.0) Urine Specific [place] 1.002 (1.003-1.030) Urine Ketones NEGATIVEmg/dL (NEGATIVE) Urine Nitrite NEGATIVEmg/dL (NEGATIVE) Urine Bilirubin NEGATIVEmg/dL (NEGATIVE) Urine Urobilinogen NEGATIVEmg/dL (NEGATIVE) Urine Leukocyte Esterase NEGATIVELeu/ul (NEGATIVE) Urine Hemoglobin NEGATIVEmg/dL (NEGATIVE) Urine Glucose NEGATIVEmg/dL (NEGATIVE) Urine Total Protein NEGATIVEmg/dl (NEGATIVE) White Blood Count 10.410^3/ul (4.8-10.8) Red Blood Count 3.9910^6/ul (4.20-5.40) Hemoglobin 12.1g/dl (12.0-16.0) Hematocrit 36.0% (37.0-47.0) Mean Corpuscular Volume 90.2fl (82.0-101.0) Mean Corpuscular Hemoglobin 30.3pg (29.0-33.0) Mean Corpuscular Hemoglobin Concent 33.6g/dl (32.0-37.0) Red Cell Distribution Width 13.2% (11.5-14.5) Platelet Count 17147^3/UL (140-415) Mean Platelet Volume 9.5fl (7.4-10.4) Neutrophils % 72.3% (39.0-77.0) Lymphocytes % 13.0% (15.0-51.0) Monocytes % 10.5% (0.0-11.0) Eosinophils % 3.3% (0.0-7.0) Basophils % 0.4% (0.0-2.0) Nucleated Red Blood Cells % 0.0/100WBC (0.0-0.0) Neutrophils # 7.510^3/ul (1.6-7.5) Lymphocytes # 1.410^3/ul (0.8-2.9) Monocytes # 1.110^3/ul (0.3-0.9) Eosinophils # 0.310^3/ul (0.0-0.5) Basophils # 0.010^3/ul (0.0-0.1) Nucleated Red Blood Cells # 0.010^3/ul (0.0-0.0) Sodium Level 144mmol/L (135-144) Potassium Level 4.6mmol/L (3.5-5.1) Chloride Level 108mmol/L (97-110) Carbon Dioxide Level 25mmol/L (21-31) Anion Gap 16 (8-16) Blood Urea Nitrogen 8mg/dl (7-20) Creatinine 0.85mg/dl (0.44-1.00) Glucose Level 104mg/dl (70-220) Calcium Level 9.4mg/dl (8.4-10.2) BERTRAND MCGHEE Mar 28, 2017 19:43
--- NOTE | 2017-03-28 21:46 | RADRPT ---
Vent Rate: 46 bpm RR Interval: 0 msec GA Interval: 218 msec QRS Duration: 70 msec QT Interval: 468 msec QTC Interval: 409 msec P-R-T [place]: 24 - -2 - 36 degrees Marked sinus bradycardia with 1st degree AV block Abnormal ECG Electronically Signed By: Chance Rodriguez [id number]
== END 2017-03-28 17:45 | disposition home or self-care (01) ==
LOC: SDS 09:41 → INTOOBSV 12:23 → SDS 12:23 → REC 12:23 → MS1 14:24
PROVIDERS: ADMIT Surgery Surgical Oncology; ATTEND Surgery Surgical Oncology
DX: K80.10 Calculus of gallbladder with chronic cholecystitis without obstruction (principal); I10 Essential (primary) hypertension; E78.5 Hyperlipidemia, unspecified; E03.9 Hypothyroidism, unspecified; M19.90 Unspecified osteoarthritis, unspecified site; F41.9 Anxiety disorder, unspecified; Z85.3 Personal history of malignant neoplasm of breast; Z92.21 Personal history of antineoplastic chemotherapy; Z96.651 Presence of right artificial knee joint; Z88.1 Allergy status to other antibiotic agents; Z88.5 Allergy status to narcotic agent; Z88.0 Allergy status to penicillin
CPT/HCPCS: 47562; 71010; 80048; 81003; 85025; 85610; 85730; 87086; 93005; 97162; G0378; J0131; J0360; J0690; J0696; J1170; J1200; J2250; J2270; J2405; J2765; J2795; J3480; 99217

== ENCOUNTER → 2017-08-02 | Outpatient (CLI) | END | disposition home or self-care (01) ==

== ENCOUNTER 2017-11-08 11:37 | Emergency (ER) | END 2017-11-08 14:11 | disposition home or self-care (01) ==